=== PATIENT | male | born 1980 | race Caucasian/White ===

== ENCOUNTER → 2024-12-05 | Day surgery (SDC) | payer OTHER ==
[~2024-12-05] MED LIST: AIMOVIG AU70 MG/1 ML INJ; ATIVAN1 MG PO; BUSPIRONE HCL10 MG PO; DICYCLOMINE HCL10 MG PO; DULOXETINE HCL60 MG PO; FLUOXETINE HCL20 MG PO; LIDOCAINE HCL 2% LOCAL INJ 5 ML SDV VIAL INJ ONE; METRONIDAZOLE250 MG PO; NEURONTIN100 MG PO; OMEPRAZOLE40 MG PO; PEPCID AC10 MG PO; PROPOFOL IV EMULSION 10 MG/ML 20 ML VIAL ONE; QUETIAPINE FUM150 M1 PO; SAM-E400 MG PO; SKYRIZI75 MG/0.83; VERAPAMIL ER120 MG PO; VITAMIN D350 MCG PO
[2024-12-05] MEDS: LACTATED RINGER'S 1,000 ML ONE (07:09)
[2024-12-05 08:46] VITALS: TEMP 98.1
[2024-12-05 09:15] VITALS: BP 122/85; PULSE 78; RESP 16; O2SAT 98
== END | disposition home or self-care (01) ==
LOC: OR 06:03
PROVIDERS: ATTEND Internal Medicine Gastroenterology
DX: Z12.11 Encounter for screening for malignant neoplasm of colon (principal); D12.3 Benign neoplasm of transverse colon; K57.30 Diverticulosis of large intestine without perforation or abscess without bleeding; K58.9 Irritable bowel syndrome, unspecified; K64.8 Other hemorrhoids; K21.9 Gastro-esophageal reflux disease without esophagitis; G47.33 Obstructive sleep apnea (adult) (pediatric); J45.909 Unspecified asthma, uncomplicated; L40.9 Psoriasis, unspecified; Z78.9 Other specified health status; F41.9 Anxiety disorder, unspecified; Z88.8 Allergy status to other drugs, medicaments and biological substances; Z01.810 Encounter for preprocedural cardiovascular examination; Z79.899 Other long term (current) drug therapy; Z68.42 Body mass index [BMI] 45.0-49.9, adult; Z71.3 Dietary counseling and surveillance; Z87.01 Personal history of pneumonia (recurrent)
CPT/HCPCS: 45380; 45385; 88305; 93005; J2003; J2704; J7121; 45378